=== PATIENT | male | born 1940 | race Caucasian/White ===

== ENCOUNTER 2016-11-26 09:07 | Outpatient (CLI) | payer OTHER ==
--- NOTE | 2016-11-26 11:07 | DIAGNOSTIC IMAGING REPORT ---
PROCEDURE: XR CHEST 1 VIEW INDICATION: Post PICC TECHNIQUE: Portable AP view 10:54 a.m. COMPARISON: None. FINDINGS: There are bibasilar infiltrates. Heart and mediastinum are normal. Thorax is normal. IMPRESSION: 1. The PICC line in the good position in the SVC. Results were called to [id number].
== END 2016-11-26 23:00 ==
LOC: SDP SRH 09:07
PROC: 02HV33Z Insertion of Infusion Device into Superior Vena Cava, Percutaneous Approach (ICD-10-PCS; principal; 2016-11-26)
PROC: B548ZZA Ultrasonography of Superior Vena Cava, Guidance (ICD-10-PCS; principal; 2016-11-26)
DX: C34.31 Malignant neoplasm of lower lobe, right bronchus or lung (principal)

== ENCOUNTER 2016-12-08 13:05 | Emergency (ER) | payer OTHER ==
--- NOTE | 2016-12-08 13:37 | ED ORDER SUMMARY ---
..... Patient: EMILIA SHEETS OrderSheet [facility] VisitID: [id number] [address] [place] [address] 76y, M Registration Date/Time: 12/08/2016 ORDER SHEET Weight: 62.5 kg (stated) Allergies: None GENERAL ORDERS: Dress Wounds (sterile occlusive dressing) (13:33 12/08/2016 Kendy A.R.N.P.) (13:56 Nadir R.N.) MEDICATION ORDERS: IV FLUIDS: ORDER SHEET NOTES: [Electronically signed by Chandana Portillo R.N. (14:13 12/08/2016)] [Electronically signed by Lizette FriasR.N.PFunmi (14:43 12/08/2016)] [Electronically locked/signed by Chandana Portillo R.N. (14:13 12/08/2016)]
--- NOTE | 2016-12-08 13:37 | ED ORDER SUMMARY ---
..... Patient: EMILIA SHEETS OrderSheet [facility] VisitID: [id number] [address] [place] [address] 76y, M Registration Date/Time: 12/08/2016 ORDER SHEET Weight: 62.5 kg (stated) Allergies: None GENERAL ORDERS: Dress Wounds (sterile occlusive dressing) (13:33 12/08/2016 Kendy A.R.N.P.) (13:56 Nadir R.N.) MEDICATION ORDERS: IV FLUIDS: ORDER SHEET NOTES: [Electronically signed by Chandana Portillo R.N. (14:13 12/08/2016)] [Electronically signed by Lizette FriasR.N.PFunmi (14:43 12/08/2016)] [Electronically locked/signed by Chandana Portillo R.N. (14:13 12/08/2016)]
--- NOTE | 2016-12-08 13:37 | ED CLINICAL REPORT ---
Clinical Report - Physicians/Mid Levels [facility] [address] [place] [address] 12/08/2016 13:07 Patient: EMILIA SHEETS Time Seen: 13:24; upon arrival, initial patient contact, initial documentation, patient care assumed. Arrived- By private vehicle. Historian- patient. HISTORY OF PRESENT ILLNESS Chief Complaint: ( pic line eval). At its maximum, severity described as mild. When seen in the E.D., it was gone. Modifying factors. Not worsened by anything. Not relieved by anything. This started yesterday. No current or associated symptoms. (had pic line put in 2 weeks ago, daily dressing changes done at dr office, sometimes it leaks yellow clear fluid, sometimes it looks bloody, other times nothing). Similar symptoms previously: None. Recent medical care: The patient was seen recently in the office. ( went to dr trinh Gallego for dressing change, supposed to go every day but missed yesterday). REVIEW OF SYSTEMS No fever, difficulty breathing or chest pain. All systems otherwise negative, except as recorded above. PAST HISTORY See nurses notes. PROBLEMS: Fibromyalgia. Rheumatoid Arthritis. Pt nor spouse know full history. Prostate Disease. Lung Cancer. --13:23 Chandana Portillo RPineda. ADDITIONAL SURGERIES: Hand surgery. Shoulder Surgery. --13:23 Chandana Portillo RFunmiN. SOCIAL HISTORY Smoker - current status unknown. No alcohol use or drug use. No recent travel. Is a local resident. FAMILY HISTORY Negative. ADDITIONAL NOTES The nursing notes have been reviewed with agreement regarding the chief complaint, HPI, ROS, PMH and patient medications and allergies. PHYSICAL EXAM Vital Signs: 12/08/2016 13:16 BP: 118/63. HR: 65. RR: 18. O2 saturation: 98%. Temp: 97.8 F. Pain level now: 0/10. Have been reviewed as normal and appear to be correct. Appearance: Alert. No acute distress. Eyes: Pupils equal, round and reactive to light. Eyes normal inspection. Neck: Normal inspection. Neck supple. CVS: Normal heart rate and rhythm. Heart sounds normal. Pulses normal. Respiratory: No respiratory distress. Breath sounds normal. Chest nontender. Back: Normal inspection. Skin: Skin warm and dry. Normal skin color. No rash. Normal skin turgor. Extremities: Extremities exhibit normal ROM. No lower extremity edema. (pic line, L upper arm in place, bandage covering mild blood, bandage removed, no active bleeding, site clear, no s/s of infection, no dc, no swelling, no erythema, nontender, no warmth). Neuro: Oriented X 3. No motor deficit. No sensory deficit. PROGRESS AND PROCEDURES Patient and spouse counseled in person regarding the patient's stable condition and diagnosis. Differential Diagnosis: Other possible considerations: pic line eval, infection, infiltrated, cellulitis. Above considerations are based on history, physical exam and reassessment. Differential diagnosis was discussed with patient and patient's spouse. Disposition: Discharged home in good and improved condition (13:37). Condition: good and stable. CLINICAL IMPRESSION (PIC line evaluation). INSTRUCTIONS Protect wound and keep wound area clean. Leave dressing in place until seen in follow-up. Warnings: GENERAL WARNINGS: Return or contact your physician immediately if your condition worsens or changes unexpectedly, if not improving as expected, or if other problems arise. Specifically return if problem worsens. Follow-up: Follow up with your doctor Saturday as scheduled even if well. Summary of care provided to patient. Understanding of the discharge instructions verbalized by patient. (Electronically signed by Lizette Frias A.R.N.P. 12/08/2016 14:43)
--- NOTE | 2016-12-08 13:37 | ED NURSING NOTES ---
Clinical Report - Nurses [facility] [address] [place] [address] 12/08/2016 13:07 Patient: EMILIA SHEETS TRIAGE Triage time 13:18 Dec 08 2016. Acuity: LEVEL 4. Chief Complaint: Location of symptoms- (pt had a picc inserted in [place] 2 weeks ago, has leaked around insertion site since. per spouse they have gone in every day to have the dressing changed- pt here to have dressing changed. pt being treated for lung cancer with chemo). Alert. No acute distress. FCO COMA SCORE: [place] Coma Scale: 15- eyes open spontaneously (4); best verbal response- oriented x 4 (5); best motor response- obeys commands (6). --13:27 Chandana Portillo R.N. 13:16 12/08/16. BP: 118/63 taken on the right arm, while lying. HR: 65. RR: 18. O2 saturation: 98%. Temp: 97.8 F. Pain level now: 0/10. --13:27 Chandana Portillo R.N. Weight: 62.5 kg stated. Height/Length: 68 inches Per Patient. BMI: 21. --13:18 Chandana Portillo R.N. Medications Methotrexate Oral (did not bring list and doesn't know dosage). --13:21 Chandana Portillo R.N. did not bring list and doesn't know drug names. --13:22 Chandana Portillo R.N. Allergies None. --13:22 Chandana Portillo R.N. Medication/allergy information source: the patient and patient's spouse. --13:27 Chandana Portillo R.N. History No injury occurred. Location of injuries: left arm. This occurred (last dressing change yesterday). 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 PAST MEDICAL HX: Tetanus status: up-to-date. Immunizations: up-to-date. SOCIAL HX: Smoker- current status unknown. No alcohol use or drug use. No infectious disease exposure. ABUSE ASSESSMENT: No report of abuse. SELF HARM ASSESSMENT: A self harm assessment was performed. The patient answered "no" to the question "Have you recently felt down, depressed, or hopeless?", "Have you noticed less interest or pleasure in doing things?", "Do you have thoughts of harming or killing yourself?", "Are you here because you tried to hurt yourself?", "Have you ever tried to hurt yourself before today?", "Have you recently had thoughts about harming or killing others?" and "Do you have any dangerous items in your possession?". FALL RISK ASSESSMENT: Fall risk assessment completed. No fall risk identified. FUNCTIONAL ASSESSMENT: Functional assessment: no impairments noted. LEARNING NEEDS ASSESSMENT: The learning needs assessment revealed no barriers. NUTRITIONAL RISK ASSESSMENT: The patient has experienced recent unexpected weight loss. Nutritional risk assessment notes: has lost 70 pounds past 2 years. SKIN INTEGRITY ASSESSMENT: Skin integrity risk assessment completed. No skin integrity risk identified. --13:27 Chandana Portillo R.N. PROBLEMS: Fibromyalgia. Rheumatoid Arthritis. Pt nor spouse know full history. Prostate Disease. Lung Cancer. --13:23 Chandana Portillo R.N. ADDITIONAL SURGERIES: Hand surgery. Shoulder Surgery. --13:23 Chandana Portillo R.N. Interventions ID band on patient. --13:27 Chandana Portillo R.N. PHYSICAL ASSESSMENT Ambulatory to room. Patient gowned. GENERAL / NEURO / PSYCH: Oriented X 4. Alert. Appears in no acute distress. EXTREMITIES: Extremities exhibit normal ROM. No upper extremity edema. Skin is non-tender on the extremities. Left arm: (picc). SKIN: Skin is warm and dry. ( dressing to picc in left upper arm, red stained, had change yesterday). --13:28 Chandana Portillo R.N. NURSING PROGRESS NOTES Patient gowned. Reassurance given to the patient and patient's family. Patient identifiers checked. Call light placed in reach. Side rails up x 1. Bed placed in lowest position. Brakes of bed on. Patient ready for evaluation- chart flagged. --13:29 Chandana Portillo R.N. Applied dressing consisting of 4x4 gauze. Secured with tape and tube gauze (dressing applied to lue picc per Lizette COLLADO, insertion site without signs of infection, signs of infection gone over with pt and spouse). --14:03 Chandana Portillo R.N. DISPOSITION / DISCHARGE ( dressing c/d/i upon dispo.). --14:04 Chandana Portillo R.N. Departure time: 1406. No learning barriers present. Discharge instructions provided and reviewed with the patient and spouse. Reviewed warnings (discussed s/sx of infection to monitor). Patient and spouse verbalized understanding. Written instructions provided in Wolof. The patient was discharged by the nurse practitioner. He was discharged home and accompanied by spouse. He left the Emergency Department ambulatory and via private vehicle. Spouse driving. --14:13 Chandana Portillo R.N. 14:12 12/08/16. BP: 121/66. HR: 61. RR: 18. O2 saturation: 98%. Temp: 97.9 F. Pain level now: 0/10. --14:13 Chandana Portillo R.N. Locked/Released at 12/08/2016 14:13 by Chandana Portillo R.N.
--- NOTE | 2016-12-08 14:44 | ED MAR SUMMARY ---
..... Medication Administration Record [facility] [address], [place] [id number] Patient: SUDEEPDYLANFroylan Doss Visit ID: [id number] 76y, M Weight: 62.5 kg Height/Length: 68 in BMI: 21 ALLERGIES: None
--- NOTE | 2016-12-08 14:44 | ED DISCHARGE INSTRUCTIONS ---
Patient: EMILIA SHEETS General Instructions [facility] VisitID: [id number] [address] [place] [address] 76y, M Registration Date/Time: 12/08/2016 (PIC line evaluation). INSTRUCTIONS Protect wound and keep wound area clean. Leave dressing in place until seen in follow-up. Warnings: GENERAL WARNINGS: Return or contact your physician immediately if your condition worsens or changes unexpectedly, if not improving as expected, or if other problems arise. Specifically return if problem worsens. Follow-up: Follow up with your doctor Saturday as scheduled even if well. Summary of care provided to patient. Understanding of the discharge instructions verbalized by patient. (Electronically signed by Lizette Frias A.R.N.P. 12/08/2016 14:43)
--- NOTE | 2016-12-08 14:44 | ED DISCHARGE INSTRUCTIONS ---
Patient: EMILIA SHEETS General Instructions [facility] VisitID: [id number] [address] [place] [address] 76y, M Registration Date/Time: 12/08/2016 (PIC line evaluation). INSTRUCTIONS Protect wound and keep wound area clean. Leave dressing in place until seen in follow-up. Warnings: GENERAL WARNINGS: Return or contact your physician immediately if your condition worsens or changes unexpectedly, if not improving as expected, or if other problems arise. Specifically return if problem worsens. Follow-up: Follow up with your doctor Saturday as scheduled even if well. Summary of care provided to patient. Understanding of the discharge instructions verbalized by patient. (Electronically signed by Lizette Frias A.R.N.P. 12/08/2016 14:43)
--- NOTE | 2016-12-08 14:44 | ED MED RECONCILIATION SUMMARY ---
Patient: DYLAN SHEETSN Selam Medication Reconciliation Report [facility] VisitID: [id number] [address] [address] 76y, M Registration Date/Time: 12/08/2016 Weight: 62.5 kg Height/Length: 68 in. BMI: 21.0 ALLERGIES: None The patient's Home Medications are listed below: THE FOLLOWING MEDICATIONS NEED TO BE RECONCILED: did not bring list and doesn't know drug names Methotrexate Oral, did not bring list and doesn't know dosage The source(s) of the original Home Medication information: patient patient's spouse The following Medications were given to the patient in the Emergency Department: None. The following Medications were prescribed to the patient: None.
--- NOTE | 2016-12-08 14:44 | ED MAR SUMMARY ---
..... Medication Administration Record [facility] [address] [place], [place] [id number] Patient: SUDEEPDYLANFroylan Doss Visit ID: [id number] 76y, M Weight: 62.5 kg Height/Length: 68 in BMI: 21 ALLERGIES: None
--- NOTE | 2016-12-08 14:44 | ED MED RECONCILIATION SUMMARY ---
Patient: DYLAN SHEETSN Selam Medication Reconciliation Report [facility] VisitID: [id number] [address] [place] [address] 76y, M Registration Date/Time: 12/08/2016 Weight: 62.5 kg Height/Length: 68 in. BMI: 21.0 ALLERGIES: None The patient's Home Medications are listed below: THE FOLLOWING MEDICATIONS NEED TO BE RECONCILED: did not bring list and doesn't know drug names Methotrexate Oral, did not bring list and doesn't know dosage The source(s) of the original Home Medication information: patient patient's spouse The following Medications were given to the patient in the Emergency Department: None. The following Medications were prescribed to the patient: None.
== END 2016-12-08 14:06 | disposition home or self-care (01) ==
LOC: ED SRH 13:05
DX: Z43.8 Encounter for attention to other artificial openings (principal); C34.90 Malignant neoplasm of unspecified part of unspecified bronchus or lung

== ENCOUNTER 2017-01-21 10:34 | Emergency (ER) | payer OTHER ==
--- NOTE | 2017-01-21 12:26 | ED NURSING NOTES ---
Clinical Report - Nurses [facility] [address] [place] [address] 01/21/2017 10:34 Patient: EMILIA SHEETS TRIAGE Triage time 10:40. Acuity: LEVEL 3. Chief Complaint: FALL. Alert. No acute distress. LEBRON COMA SCORE: [place] Coma Scale: 15- eyes open spontaneously (4); best verbal response- oriented x 4 (5); best motor response- obeys commands (6). --10:45 Niecy Adams R.N. 10:42 01/21/17. BP: 128/53. HR: 71. RR: 16. O2 saturation: 98% on room air. Temp: 97.7 F (oral). Pain level now 0/10. --10:45 Niecy Adams R.N. Weight: 61.2 kg stated. Height/Length: 68 inches Per Patient. BMI: 20.5. --10:43 Niecy Adams R.N. Medications did not bring list and doesn't know drug names. Methotrexate Oral (did not bring list and doesn't know dosage). --10:44 Niecy Adams R.N. Allergies None. --10:44 Niecy Adams R.N. Medication/allergy information source: the patient. --10:45 Niecy Adams R.N. 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 ( rolled out of bed while sleeping, striking bridge of nose on nightstand. Denies LOC, denies any other injuries. States he has rolled out of bed multiple times. Denies any blood thinners or aspirin). Location of injuries: face. This occurred just prior to arrival. Occurred at home. 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 Trauma activation: Pre-hospital notification of patient arrival was not received. SOCIAL HX: Former smoker, end date 12/2016. No alcohol use or drug use. ABUSE ASSESSMENT: No report of abuse. FALL RISK ASSESSMENT: Fall risk assessment completed. No fall risk identified. NUTRITIONAL RISK ASSESSMENT: The nutritional risk assessment revealed no deficiencies. FUNCTIONAL ASSESSMENT: Functional assessment: no impairments noted. LEARNING NEEDS ASSESSMENT: The learning needs assessment revealed no barriers. SKIN INTEGRITY ASSESSMENT: Skin integrity risk assessment completed. No skin integrity risk identified. --10:45 Niecy Adams R.N. PROBLEMS: Fall. Fibromyalgia. Rheumatoid Arthritis. Prostate Disease. Lung Cancer. --10:44 Niecy Adams R.N. ADDITIONAL SURGERIES: Hand surgery. Shoulder Surgery. --10:44 Niecy Adams R.N. Interventions ID band on patient. To treatment room. --10:45 Niecy Adams R.N. PHYSICAL ASSESSMENT Ambulatory to room. GENERAL / NEURO / PSYCH: Alert. Oriented X 4. Appears in no acute distress. RESPIRATORY: Respirations not labored. CVS: Capillary refill less than 2 seconds. GI / : Abdomen soft and nontender. EXTREMITIES: Neuro-vascular status intact to the extremity. SKIN: Skin is warm and dry. ( lac to left brow. abrasion to nose. bleeding controlled). --10:46 Niecy Adams R.N. NURSING PROGRESS NOTES 10:46 01/21/17. The plan of care for this patient has been created. Call light placed in reach. Side rails up x 2. Bed placed in lowest position. Brakes of bed on. Patient ready for evaluation- chart flagged. --10:46 Niecy Adams R.N. 10:59 01/21/2017 TDAP IM 0.5 mL given. (Lot#: [id number], expiration date: 12/13/2017, Manager Managed Care: sanofi pasteur). Given in the right deltoid. Allergies verified and confirmed 5 rights. Vaccine information statement provided to the patient. --10:59 Sergio Whitt R.N. 11:15 01/21/2017 Lidocaine-Epinephrine (Lidocaine-Epinephrine) Injection 2 % given. Allergies verified and confirmed 5 rights. --11:15 Sergio Whitt R.N. 12:05 01/21/17. ( at bedside suturing wound). --12:05 Sergio Whitt R.N. late entry -12:30. WOUND REPAIR: Wound repair performed by ED physician. The wound is linear. Preparation: with 2% lidocaine with epi. Procedure: wound repaired with sutures (two suture packs used). Post-procedure: he was stable, bleeding controlled and dressing applied. ( abx ointment used). --12:42 Sergio Whitt R.N. DISPOSITION / DISCHARGE 12:42 01/21/17. Condition at departure: improved. The goals identified in the patient's plan of care were met. No learning barriers present. Discharge instructions provided and reviewed with the patient and spouse. Reviewed warnings. Reviewed medication(s). Treatments reviewed. Patient and spouse verbalized understanding. Written instructions provided in Mongolian. The patient was discharged by the physician. He was discharged home and accompanied by family. He left the Emergency Department ambulatory and via private vehicle. Family member driving. FALL RISK ASSESSMENT: Fall risk assessment completed. No fall risk identified. --12:42 Sergio Whitt R.N. 12:41 01/21/17. BP: 100/54. HR: 80. RR: 12. O2 saturation: 98% on room air. Temp: 98.2 F (oral). --12:42 Sergio Whitt R.N. 12:42 01/21/17. Departure time: 12:42. --12:43 Sergio Whitt R.N. Locked/Released at 01/21/2017 12:46 by Sergio Whitt R.N.
--- NOTE | 2017-01-21 12:26 | ED NURSING NOTES ---
Clinical Report - Nurses [facility] [address] [place] [address] 01/21/2017 10:34 Patient: EMILIA SHEETS TRIAGE Triage time 10:40. Acuity: LEVEL 3. Chief Complaint: FALL. Alert. No acute distress. LEBRON COMA SCORE: [place] Coma Scale: 15- eyes open spontaneously (4); best verbal response- oriented x 4 (5); best motor response- obeys commands (6). --10:45 Niecy Adams R.N. 10:42 01/21/17. BP: 128/53. HR: 71. RR: 16. O2 saturation: 98% on room air. Temp: 97.7 F (oral). Pain level now 0/10. --10:45 Niecy Adams R.N. Weight: 61.2 kg stated. Height/Length: 68 inches Per Patient. BMI: 20.5. --10:43 Niecy Adams R.N. Medications did not bring list and doesn't know drug names. Methotrexate Oral (did not bring list and doesn't know dosage). --10:44 Niecy Adams R.N. Allergies None. --10:44 Niecy Adams R.N. Medication/allergy information source: the patient. --10:45 Niecy Adams R.N. 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 ( rolled out of bed while sleeping, striking bridge of nose on nightstand. Denies LOC, denies any other injuries. States he has rolled out of bed multiple times. Denies any blood thinners or aspirin). Location of injuries: face. This occurred just prior to arrival. Occurred at home. 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 Trauma activation: Pre-hospital notification of patient arrival was not received. SOCIAL HX: Former smoker, end date 12/2016. No alcohol use or drug use. ABUSE ASSESSMENT: No report of abuse. FALL RISK ASSESSMENT: Fall risk assessment completed. No fall risk identified. NUTRITIONAL RISK ASSESSMENT: The nutritional risk assessment revealed no deficiencies. FUNCTIONAL ASSESSMENT: Functional assessment: no impairments noted. LEARNING NEEDS ASSESSMENT: The learning needs assessment revealed no barriers. SKIN INTEGRITY ASSESSMENT: Skin integrity risk assessment completed. No skin integrity risk identified. --10:45 Niecy Adams R.N. PROBLEMS: Fall. Fibromyalgia. Rheumatoid Arthritis. Prostate Disease. Lung Cancer. --10:44 Niecy Adams R.N. ADDITIONAL SURGERIES: Hand surgery. Shoulder Surgery. --10:44 Niecy Adams R.N. Interventions ID band on patient. To treatment room. --10:45 Niecy Adams R.N. PHYSICAL ASSESSMENT Ambulatory to room. GENERAL / NEURO / PSYCH: Alert. Oriented X 4. Appears in no acute distress. RESPIRATORY: Respirations not labored. CVS: Capillary refill less than 2 seconds. GI / : Abdomen soft and nontender. EXTREMITIES: Neuro-vascular status intact to the extremity. SKIN: Skin is warm and dry. ( lac to left brow. abrasion to nose. bleeding controlled). --10:46 Niecy Adams R.N. NURSING PROGRESS NOTES 10:46 01/21/17. The plan of care for this patient has been created. Call light placed in reach. Side rails up x 2. Bed placed in lowest position. Brakes of bed on. Patient ready for evaluation- chart flagged. --10:46 Niecy Adams R.N. 10:59 01/21/2017 TDAP IM 0.5 mL given. (Lot#: [id number], expiration date: 12/13/2017, Sheeter Operator: sanofi pasteur). Given in the right deltoid. Allergies verified and confirmed 5 rights. Vaccine information statement provided to the patient. --10:59 Sergio Whitt R.N. 11:15 01/21/2017 Lidocaine-Epinephrine (Lidocaine-Epinephrine) Injection 2 % given. Allergies verified and confirmed 5 rights. --11:15 Sergio Whitt R.N. 12:05 01/21/17. ( at bedside suturing wound). --12:05 Sergio Whitt R.N. late entry -12:30. WOUND REPAIR: Wound repair performed by ED physician. The wound is linear. Preparation: with 2% lidocaine with epi. Procedure: wound repaired with sutures (two suture packs used). Post-procedure: he was stable, bleeding controlled and dressing applied. ( abx ointment used). --12:42 Sergio Whitt R.N. DISPOSITION / DISCHARGE 12:42 01/21/17. Condition at departure: improved. The goals identified in the patient's plan of care were met. No learning barriers present. Discharge instructions provided and reviewed with the patient and spouse. Reviewed warnings. Reviewed medication(s). Treatments reviewed. Patient and spouse verbalized understanding. Written instructions provided in Faroese. The patient was discharged by the physician. He was discharged home and accompanied by family. He left the Emergency Department ambulatory and via private vehicle. Family member driving. FALL RISK ASSESSMENT: Fall risk assessment completed. No fall risk identified. --12:42 Sergio Whitt R.N. 12:41 01/21/17. BP: 100/54. HR: 80. RR: 12. O2 saturation: 98% on room air. Temp: 98.2 F (oral). --12:42 Sergio Whitt R.N. 12:42 01/21/17. Departure time: 12:42. --12:43 Sergio Whitt R.N. Locked/Released at 01/21/2017 12:46 by Sergio Whitt R.N.
--- NOTE | 2017-01-21 12:26 | ED ORDER SUMMARY ---
..... Patient: EMILIA SHEETS OrderSheet [facility] VisitID: [id number] [address] [place] [address] 76y, M Registration Date/Time: 01/21/2017 ORDER SHEET Weight: 61.2 kg (stated) Allergies: None GENERAL ORDERS: Suture Set-up: (11:00 01/21/2017 Hammad Piedra) (11:11 JBoardley R.N.) MEDICATION ORDERS: Tdap IM 0.5 mL (NOW, per protocol) (10:58 01/21/2017 JBoardley R.N. per protocol) (10:59 JBoardley R.N.) Lidocaine-Epinephrine Injection 2 % (soln) (NOW) (11:00 01/21/2017 Hammad Piedra) (Ack 11:02 JBoardley R.N.) (11:15 JBoardley R.N.) IV FLUIDS: ORDER SHEET NOTES: [Electronically signed by Sergio Whitt R.N. (12:46 01/21/2017)] [Electronically signed by Avery Gonzalez Dr. (22:25 01/21/2017)] [Electronically locked/signed by Sergio Whitt R.N. (12:46 01/21/2017)]
--- NOTE | 2017-01-21 12:26 | ED ORDER SUMMARY ---
..... Patient: EMILIA SHEETS OrderSheet [facility] VisitID: [id number] [address] [place] [address] 76y, M Registration Date/Time: 01/21/2017 ORDER SHEET Weight: 61.2 kg (stated) Allergies: None GENERAL ORDERS: Suture Set-up: (11:00 01/21/2017 Hammad Piedra) (11:11 JBoardley R.N.) MEDICATION ORDERS: Tdap IM 0.5 mL (NOW, per protocol) (10:58 01/21/2017 JBoardley R.N. per protocol) (10:59 JBoardley R.N.) Lidocaine-Epinephrine Injection 2 % (soln) (NOW) (11:00 01/21/2017 Hammad Piedra) (Ack 11:02 JBoardley R.N.) (11:15 JBoardley R.N.) IV FLUIDS: ORDER SHEET NOTES: [Electronically signed by Sergio Whitt R.N. (12:46 01/21/2017)] [Electronically signed by Avery Gonzalez Dr. (22:25 01/21/2017)] [Electronically locked/signed by Sergio Whitt R.N. (12:46 01/21/2017)]
--- NOTE | 2017-01-21 12:26 | ED CLINICAL REPORT ---
Clinical Report - Physicians/Mid Levels [facility] [address] [place] [address] 01/21/2017 10:34 Patient: EMILIA SHEETS Time Seen: 10:38; initial patient contact. Arrived- By private vehicle. Historian- patient. HISTORY OF PRESENT ILLNESS Chief Complaint: INJURY TO FACE. Location of injuries- face. The injury occurred just prior to arrival. Occurred at home. Fell out of bed and landed on a hard surface. The patient complains of mild pain. The patient sustained a blow to the head. No neck pain or loss of consciousness. Not dazed. REVIEW OF SYSTEMS No numbness or loss of vision. He sustained skin laceration. All systems otherwise negative, except as recorded above. PAST HISTORY Fall. Fibromyalgia. Rheumatoid Arthritis. Prostate Disease. Lung Cancer. ADDITIONAL SURGERIES: Hand surgery. Shoulder Surgery. SOCIAL HISTORY Former smoker. ADDITIONAL NOTES The nursing notes have been reviewed. PHYSICAL EXAM Vital Signs: 01/21/2017 10:42 BP: 128/53. HR: 71. RR: 16. O2 saturation: 98%. Temp: 97.7 F. Have been reviewed. Hypotensive. Heart rate normal. Respiratory rate normal. Temperature normal. Oxygen saturation normal. Appearance: Alert. No acute distress. Eyes: Pupils equal, round and reactive to light. EOM intact. Right periorbital area: deep 4.0 cm horizontal laceration of the lateral aspect and supraorbital area of the periorbital area. No deformity. No entrapment of extraocular muscles or gaze palsy. ENT: No dental injury. Pharynx normal. Neck: Painless ROM. Non-tender. Skin: Single medium-sized, deep, linear 4.0 cm laceration to face. Extremities: Extremities atraumatic. Neuro: Oriented X 3. PROGRESS AND PROCEDURES Laceration Repair: Time: 12:24. Location: right eyebrow. Per protocol, time-out completed immediately before the procedure. Length: 4.0cm. Complexity: intermediate (layer closure). Wound depth/shape- linear and involving fascia. Distal neuro/vascular/tendon status normal. Anesthesia provided using 2% lidocaine with epi. Prepped with Hibiclens. Wound explored, irrigated and examined to the base in bloodless field extensively with normal saline. Closure of skin: interrupted 5-0 Prolene (5 sutures). Subcutaneous closure: interrupted 4-0 Vicryl (2 sutures). Post-procedure: he is stable and there are no complications. Bleeding is controlled and neuro-vascular status is intact distal to the wound. Dressing applied. Tetanus immunization given. Estimated blood loss: 5 mL. Disposition: Discharged home in good and improved condition. Condition: good. CLINICAL IMPRESSION Single deep laceration to the right periorbital area. Complicated repair. Treatment of laceration not delayed. No infection or foreign body present. INSTRUCTIONS Apply ice for 20 minutes five times a day followed by heat 20 minutes. Don't apply ice directly to skin. Protect wound and keep wound area clean. Change dressing twice daily. You may wash wounds briefly, then dry. Apply bacitracin twice daily. Sutures should be removed in five days. Your Current Medications: CONTINUE TAKING THE FOLLOWING MEDICATIONS: did not bring list and doesn't know drug names*. Methotrexate Oral : did not bring list and doesn't know dosage. Follow-up: Return to the emergency department in five days for suture removal. Follow up with your doctor in five days for suture removal. Call for an appointment. Screening today revealed the patient's blood pressure to be in the pre-hypertensive range. The patient should follow up with a primary care provider for blood pressure management. (Electronically signed by Avery Gonzalez Dr. 01/21/2017 22:25)
--- NOTE | 2017-01-21 22:25 | ED DISCHARGE INSTRUCTIONS ---
Patient: EMILIA SHEETS General Instructions [facility] VisitID: [id number] [place] [address] 76y, M Registration Date/Time: 01/21/2017 Single deep laceration to the right periorbital area. Complicated repair. Treatment of laceration not delayed. No infection or foreign body present. INSTRUCTIONS Apply ice for 20 minutes five times a day followed by heat 20 minutes. Don't apply ice directly to skin. Protect wound and keep wound area clean. Change dressing twice daily. You may wash wounds briefly, then dry. Apply bacitracin twice daily. Sutures should be removed in five days. Your Current Medications: CONTINUE TAKING THE FOLLOWING MEDICATIONS: did not bring list and doesn't know drug names*. Methotrexate Oral : did not bring list and doesn't know dosage. Follow-up: Return to the emergency department in five days for suture removal. Follow up with your doctor in five days for suture removal. Call for an appointment. Screening today revealed the patient's blood pressure to be in the pre-hypertensive range. The patient should follow up with a primary care provider for blood pressure management. ADDITIONAL INFORMATION Laceration (All Closures) Alaceration is a cut through the skin. This will usually require stitches (sutures) or vanessa if it is deep. Minor cuts may be treated with a surgical tape closure orskin glue. Home care The following guidelines will help you care for your laceration at home: Extremity, face, or trunk wounds Keep the wound clean and dry. If a bandage was applied and it becomes wet or dirty, replace it. Otherwise, leave it in place for the first 24 hours. If stitches or vanessa were used, clean the wound daily. After removing the bandage, wash the area with soap and water. Use a wet cotton swab to loosen and remove any blood or crust that forms. The doctor may prescribe an antibiotic cream or ointment to prevent infection. Do not stop taking this medication until you have finished the prescribed course or the doctor tells you to stop. The doctor may also prescribe medications for pain. Follow the doctors instructions for taking these medications. You may remove the bandage to shower as usual after the first 24 hours, but do not soak the area in water (no swimming) until the stitches or vanessa are removed. If surgical tape was used, keep the area clean and dry. If it becomes wet, blot it dry with a towel. If skin glue was used, do not scratch, rub, or pick at the adhesive film. Do not place tape directly over the film. Do not apply liquid, ointment, or creams to the wound while the film is in place. Do not clean the wound with peroxide and do not apply ointments. Avoid activities that cause heavy sweating until the film has fallen off. Protect the wound from prolonged exposure to sunlight or tanning lamps. You may shower as usual but do not soak the wound in water (no baths or swimming). The film will fall off by itself in 510 days. Scalp wounds During the first two days, you may carefully rinse your hair in the shower to remove blood, glass or dirt particles. After two days, you may shower and shampoo your hair normally. Do not soak your scalp in the tub or go swimming until the stitches or vanessa have been removed. Talk with your doctor before applying any antibiotic ointment to the wound. Mouth wounds Eat soft foods to reduce pain. If the cut is inside of your mouth, clean by rinsing after each meal and at bedtime with a mixture of equal parts water and hydrogen peroxide (do not swallow!). Or, you can use a cotton swab to directly apply hydrogen peroxide onto the cut. Mouth wounds can be painful when eating. You may use an [id number] local numbing solution for pain relief. If this is not available, you may use any numbing solution for teething babies. You may apply this directly to the sores with a cotton-tip swab or with your finger. Follow-up care Follow up with your health care provider. Most skin wounds heal within ten days. Mouth and facial wounds heal within five days. However, even with proper treatment, a wound infection may sometimes occur. Therefore, you should check the wound daily for signs of infection listed below. Stitches should be removed from the face within five days; stitches and vanessa should be removed from other parts of the body within 714 days. If dissolving stitches were used in the mouth, these will fall out or dissolve without the need for removal. If tape closures were used, remove them yourself if they have not fallen off after 7 days. Ifskin glue was used, the film will fall off by itself in 510 days. When to seek medical care Get prompt medical attention if any of these occur: Bleeding not controlled by direct pressure Signs of infection, including increasing pain in the wound, increasing wound redness or swelling, or pus coming from the wound Fever of 100.4F (38C) or higher, or as directed by your health care provider Stitches or vanessa come apart or fall out or surgical tape falls off before 7 days Wound edges re-open Bandage Change If the bandage becomes wet or dirty, replace it. Otherwise, leave it in place for the first 24 hours. Then once a day: After removing the bandage, wash the area with soap and water. Use a wet cotton swab to loosen and remove any blood or crust that forms on the wound. After cleaning, apply a thin layer of antibiotic ointment or cream. Reapply the bandage. You may shower as usual after the first 24 hours. If the bandage is on an arm or leg, cover it with a plastic bag rubber banded at both ends before showering. No tub baths or swimming until the bandage is removed and the wound healed (at least 7 days). You have been given the following additional information: Laceration, All Dressing Change (Electronically signed by Avery Gonzalez Dr. 01/21/2017 22:25)
--- NOTE | 2017-01-21 22:25 | ED MED RECONCILIATION SUMMARY ---
Patient: EMILIA SHEETS Medication Reconciliation Report [facility] VisitID: [id number] [address] [place] [address] 76y, M Registration Date/Time: 01/21/2017 Weight: 61.2 kg Height/Length: 68 in. BMI: 20.5 ALLERGIES: None The patient's Home Medications are listed below: CONTINUE TAKING THE FOLLOWING MEDICATIONS: did not bring list and doesn't know drug names Methotrexate Oral, did not bring list and doesn't know dosage The source(s) of the original Home Medication information: patient The following Medications were given to the patient in the Emergency Department: TDAP [IM] IM 0.5 mL, administered: 01/21/2017 10:59:00 AM Lidocaine-Epinephrine [Injection] Injection 2 %, administered: 01/21/2017 11:15:00 AM The following Medications were prescribed to the patient: None.
--- NOTE | 2017-01-21 22:25 | ED MAR SUMMARY ---
..... Medication Administration Record [facility] [address] [place] [address] Patient: EMILIA SHEETS Visit ID: [id number] 76y, M Weight: 61.2 kg Height/Length: 68 in BMI: 20.5 ALLERGIES: None Given 10:59 01/21/2017 Sergio Whitt R.N. Medication Administered: TDAP [IM], Dose: 0.5 mL IM. Medication Ordered: Tdap IM 0.5 mL (NOW, per protocol). Given 11:15 01/21/2017 Sergio Whitt R.N. Medication Administered: LIDOCAINE-EPINEPHRINE [INJECTION] (LIDOCAINE-EPINEPHRINE), Dose: 2 % Injection. Medication Ordered: Lidocaine-Epinephrine Injection 2 % (soln) (NOW).
--- NOTE | 2017-01-21 22:25 | ED MAR SUMMARY ---
..... Medication Administration Record [facility] [address] [place] [address] Patient: EMILIA SHEETS Visit ID: [id number] 76y, M Weight: 61.2 kg Height/Length: 68 in BMI: 20.5 ALLERGIES: None Given 10:59 01/21/2017 Sergio Whitt R.N. Medication Administered: TDAP [IM], Dose: 0.5 mL IM. Medication Ordered: Tdap IM 0.5 mL (NOW, per protocol). Given 11:15 01/21/2017 Sergio Whitt R.N. Medication Administered: LIDOCAINE-EPINEPHRINE [INJECTION] (LIDOCAINE-EPINEPHRINE), Dose: 2 % Injection. Medication Ordered: Lidocaine-Epinephrine Injection 2 % (soln) (NOW).
--- NOTE | 2017-01-21 22:25 | ED MED RECONCILIATION SUMMARY ---
Patient: EMILIA SHEETS Medication Reconciliation Report [facility] VisitID: [id number] [address] [place] [address] 76y, M Registration Date/Time: 01/21/2017 Weight: 61.2 kg Height/Length: 68 in. BMI: 20.5 ALLERGIES: None The patient's Home Medications are listed below: CONTINUE TAKING THE FOLLOWING MEDICATIONS: did not bring list and doesn't know drug names Methotrexate Oral, did not bring list and doesn't know dosage The source(s) of the original Home Medication information: patient The following Medications were given to the patient in the Emergency Department: TDAP [IM] IM 0.5 mL, administered: 01/21/2017 10:59:00 AM Lidocaine-Epinephrine [Injection] Injection 2 %, administered: 01/21/2017 11:15:00 AM The following Medications were prescribed to the patient: None.
== END 2017-01-21 12:42 | disposition home or self-care (01) ==
LOC: ED SRH 10:34
DX: S01.111A Laceration without foreign body of right eyelid and periocular area, initial encounter (principal); W06.XXXA Fall from bed, initial encounter; Y93.84 Activity, sleeping; Y99.9 Unspecified external cause status; Y92.003 Bedroom of unspecified non-institutional (private) residence as the place of occurrence of the external cause; Z23 Encounter for immunization; Z79.899 Other long term (current) drug therapy; Z87.891 Personal history of nicotine dependence